=== PATIENT | female | born 1945 | race Caucasian/White ===

== ENCOUNTER 2017-04-23 19:33 | Emergency (ER) | payer OTHER ==
[~2017-04-23 19:33] MED LIST: ASPI81 PO; ATOR40TA49 PO; BACT800T5 PO; Losartan Potassium PO; METO25 PO; NITR-29 PO; TRAM50 PO
[2017-04-23 19:36] VITALS: BP 131/82; PULSE 80; RESP 15; TEMP 98.6; O2SAT 97
[2017-04-23] MEDS ORDERED: ASPI-110 PO (20:27)
[2017-04-23] MEDS ORDERED: LIPI40TA PO (20:27)
[2017-04-23] MEDS ORDERED: METO25TA3 PO (20:27)
[2017-04-23] MEDS ORDERED: LOSA50TA PO (20:27)
--- NOTE | 2017-04-23 20:47 | PD ---
HPI Chief Complaint: Numbness/Tingling Time Seen by Provider: 20:15 Travel History International Travel<30 days: No Contact w/Intl Traveler<30days: No Traveled to known affect area: No History of Present Illness HPI The patient was seen and examined in the presence of the nurse. This patient developed some spontaneous bruising of her left wrist. This was 3-4 days ago. No specific injury. She does take aspirin daily. Her boss at work noticed this and wanted her to get checked out. Not having pain. PFSH Past Medical History Asthma: No Blood Disorders: No Anxiety: No Depression: No Heart Rhythm Problems: Yes (PACEMAKER 2013) Cancer: No Cardiac Catheterization: Yes Cardiovascular Problems: Yes (PACEMAKER) High Cholesterol: Yes Chemotherapy: No Chest Pain: Yes Congestive Heart Failure: No COPD: No Diabetes: No Diminished Hearing: No Endocrine: No Genitourinary: Yes (UTI'S) Hypertension: Yes Immune Disorder: No Implanted Vascular Access Dvce: Yes Musculoskeletal: No Neurologic: No Psychiatric: No Reproductive: No Respiratory: No Immunizations Current: No Radiation Therapy: No Sleep Apnea: No Thyroid Disease: No Tetanus Vaccination: > 5 Years Menopausal: Yes : 3 Para: 2 Miscarriage: 1 Tubal Ligation: Yes Past Surgical History AICD: Yes Body Medical Devices: PACEMAKER Cardiac Surgery: Yes (PACEMAKER) Pacemaker: Yes Other Surgery: Yes Social History Alcohol Use: Yes (glass of wine sometimes) Tobacco Use: No Substance Use: No Allergies-Medications (Allergen,Severity, Reaction): Coded Allergies: No Known Allergies (Verified , 04/23/17) Reported Meds & Prescriptions Reported Meds & Active Scripts Active Reported Losartan (Losartan Potassium) 50 Mg Tab 50 Mg PO DAILY Metoprolol Tartrate 25 Mg Tab 25 Mg PO BID Lipitor (Atorvastatin Calcium) 40 Mg Tab 40 Mg PO HS Aspirin 81 (Aspirin) 81 Mg Tabdr 81 Mg PO DAILY Review of Systems General / Constitutional: No: Fever HENT: No: Headaches, Rhinorrhea Cardiovascular: No: Chest Pain or Discomfort Physical Exam Narrative CARDIOVASCULAR: Regular rate and rhythm without murmur. Extremities showed no edema or varicosities. NEUROLOGICAL: Awake and alert. Pupils are equal round and reactive. Motor and sensory grossly within normal limits. Five out of 5 muscle strength in all muscle groups. Normal speech. Left wrist: There is an area of ecchymosis but no tenderness or swelling Data Data Last Documented VS Vital Signs Date Time Temp Pulse Resp B/P Pulse Ox O2 Delivery O2 Flow Rate FiO2 04/23/17 19:36 98.6 80 15 131/82 97 Room Air MDM Medical Decision Making Medical Screen Exam Complete: Yes Emergency Medical Condition: Yes Medical Record Reviewed: Yes Differential Diagnosis Aspirin side effect, spontaneous ecchymosis, contusion Narrative Course I have reviewed the patient's electronic medical record. Patient has a area spontaneous ecchymosis on the wrist which may partially be related her aspirin therapy. Recommend primary care follow-up at this point Diagnosis Primary Impression: Spontaneous ecchymosis Additional Instructions: The patient was advised to follow up with their physician and return if they worsen. Med/Other Pt SpecificInfo: Other Disposition: 01 DISCHARGE HOME Condition: Stable Xavier Diamond MD Apr 23, 2017 20:47
== END 2017-04-23 20:54 | disposition home or self-care (01) ==
LOC: NEPC 19:33
DX: R23.3 Spontaneous ecchymoses (principal); E78.00 Pure hypercholesterolemia, unspecified; I10 Essential (primary) hypertension; Z79.82 Long term (current) use of aspirin; Z95.810 Presence of automatic (implantable) cardiac defibrillator
CPT/HCPCS: 99282

== ENCOUNTER 2017-09-26 15:08 | Emergency (ER) | payer OTHER ==
[~2017-09-26] VITALS: Ht 167.6 cm; Wt 61.8 kg
[~2017-09-26 15:08] MED LIST changes: +ASPI1TAB57 PO; -ASPI81 PO; -ATOR40TA49 PO; -BACT800T5 PO; +LIPI40TA PO; +LOSA50TA PO; -Losartan Potassium PO; -METO25 PO; +METO25TA3 PO; -NITR-29 PO; -TRAM50 PO
[2017-09-26 15:20] VITALS: BP 130/69; PULSE 69; RESP 16; TEMP 98.6; O2SAT 97
[2017-09-26] MEDS ORDERED: AMLO2.5T PO (15:39)
[2017-09-26] MEDS ORDERED: LOSA100T PO (15:39)
[2017-09-26] MEDS ORDERED: SPIR25TA PO (15:39)
[2017-09-26] MEDS ORDERED: NITR100C4 PO (15:39)
[2017-09-26 15:40] LABS: BLOOD, URINE SMALL (NEG); GLUCOSE,URINE NEG (NEG); KETONE, URINE NEG (NEG); NITRITE,URINE NEG (NEG)
[2017-09-26 15:41] LABS: METHOD OF COLLECTION CLEAN CATCH; URINE COLOR YELLOW (YELLW/STRAW)
--- NOTE | 2017-09-26 15:43 | PD ---
HPI . Cold Chief Complaint: Cold / Flu Symptoms Time Seen by Provider: 15:30 Travel History International Travel<30 days: No Contact w/Intl Traveler<30days: No Traveled to known affect area: No History of Present Illness HPI This patient presents with a chief complaint of a cold. Onset was a week and a half ago. She states that she presents to us about it today because she couldn' t see her doctor today because it is Thursday. She states that she has been busy working all of the other days up until today. She is not taking any over- the-counter cold medication. Her symptoms include cough with clear sputum and fatigue. No modifying factors. Symptoms are mild. In addition, the patient reports a history of chronic urinary tract infections. She is currently on Macrobid. She is scheduled to see a urologist in the near future. PFSH Past Medical History Hx Anticoagulant Therapy: Yes (asa 81mg) Asthma: No Blood Disorders: No Anxiety: No Depression: No Heart Rhythm Problems: Yes (PACEMAKER 2013) Cancer: No Cardiac Catheterization: Yes Cardiovascular Problems: Yes (htn on meds, pacemaker) High Cholesterol: Yes Chemotherapy: No Chest Pain: Yes Congestive Heart Failure: No COPD: No Diabetes: No Diminished Hearing: No Endocrine: No Genitourinary: Yes (UTI'S) Hypertension: Yes Immune Disorder: No Implanted Vascular Access Dvce: Yes Musculoskeletal: No Neurologic: No Psychiatric: No Reproductive: No Respiratory: No Immunizations Current: No Radiation Therapy: No Sleep Apnea: No Thyroid Disease: No Tetanus Vaccination: > 5 Years Influenza Vaccination: No ?: Not Menopausal: Yes : 3 Para: 2 Miscarriage: 1 Tubal Ligation: Yes Past Surgical History AICD: Yes Body Medical Devices: PACEMAKER Cardiac Surgery: Yes (PACEMAKER) Pacemaker: Yes Other Surgery: Yes Social History Alcohol Use: Yes (glass of wine sometimes) Tobacco Use: No Substance Use: No Allergies-Medications (Allergen,Severity, Reaction): Coded Allergies: ciprofloxacin (Verified Allergy, Severe, swelling, 09/26/17) Reported Meds & Prescriptions Reported Meds & Active Scripts Active Reported Amlodipine (Amlodipine Besylate) 2.5 Mg Tab 2.5 Mg PO DAILY Losartan (Losartan Potassium) 100 Mg Tab 100 Mg PO DAILY Spironolactone 25 Mg Tab 25 Mg PO DAILY Nitrofurantoin Monohydrate Macrocrystals (Nitrofurantoin Monoh/Nitrofur Macro) 100 Mg Cap 100 Mg PO DAILY Metoprolol Tartrate 25 Mg Tab 25 Mg PO BID Aspirin 81 (Aspirin) 81 Mg Tabdr 81 Mg PO DAILY Review of Systems General / Constitutional: No: Fever, Chills HENT: Positive: Congestion Cardiovascular: No: Chest Pain or Discomfort Respiratory: Positive: Cough, No: Shortness of Breath Physical Exam Narrative Vital Signs Date Time Temp Pulse Resp B/P (MAP) Pulse Ox O2 Delivery O2 Flow Rate FiO2 09/26/17 15:35 Room Air 09/26/17 15:20 98.6 69 16 130/69 (89) 97 GENERAL: Awake and alert and in no acute distress. SKIN: Warm and dry. HEAD: Normocephalic/atraumatic. EYES: Pupils are equal. Extraocular movements are intact. ENT: Oropharynx pink and moist with no erythema. The nose has no significant edema the turbinates. NECK: Normal range of motion. No cervical lymphadenopathy. CARDIOVASCULAR: Regular rate and rhythm. RESPIRATORY: Nonlabored respirations. Lungs are clear with full air movement throughout. MUSCULOSKELETAL: Atraumatic. NEUROLOGICAL: Nonfocal. PSYCHIATRIC: Appropriate mood and affect. Data Data Last Documented VS Vital Signs Date Time Temp Pulse Resp B/P (MAP) Pulse Ox O2 Delivery O2 Flow Rate FiO2 09/26/17 15:35 Room Air 09/26/17 15:20 98.6 69 16 130/69 (89) 97 Orders Orders Urinalysis - C+S If Indicated (09/26/17 15:19) Labs Laboratory Tests Test 09/26/17 15:30 Urine Collection Type CLEAN CATCH Urine Color YELLOW Urine Turbidity SLIGHT Urine pH 6.0 Urine Specific [place] 1.019 Urine Protein NEG mg/dL Urine Glucose (UA) NEG mg/dL Urine Ketones NEG mg/dL Urine Occult Blood SMALL Urine Nitrite NEG Urine Bilirubin NEG Urine Leukocyte Esterase TRACE Urine RBC 0-3 /hpf Urine WBC 0-2 /hpf Urine Squamous Epithelial Cells 6-8 /hpf Urine Amorphous Sediment FEW Microscopic Urinalysis Comment CULT NOT INDICATED Urine Collection Time 1530 MDM Medical Decision Making Medical Screen Exam Complete: Yes Emergency Medical Condition: Yes Differential Diagnosis Differential diagnosis includes but is not limited to influenza, upper respiratory infection, bronchitis, pneumonia Narrative Course This patient presents with cold symptoms. She has no significant physical exam findings. UA today is clear. Diagnosis Primary Impression: Upper respiratory infection Qualified Codes: J06.9 - Acute upper respiratory infection, unspecified Patient Instructions: General Instructions, Upper Respiratory Infection (DC) Additional Instructions: I recommend the use of a Neti Pot. You may use a nasal spray such as Afrin for up to 3 days as needed for nasal congestion. You may take an bojr-kdj-widugbl antihistamine such as Zyrtec, Elisabet or Claritin as needed for runny secretions. You may take pseudoephedrine as needed for congestion. You will need to sign for this at the pharmacy. You may take plain Mucinex, 1200 mg twice a day as needed for thick secretions. You may take a cough syrup such as Delsym as needed for cough. Motrin as needed for fever and body aches. Throat lozenges/sprays as needed for sore throat. Warm salt water gargles for sore throat. Hot tea with lemon and honey also helps soothe a sore throat. Disposition: 01 DISCHARGE HOME Condition: Stable Haylee Loja MD Sep 26, 2017 15:43
[2017-09-26 15:45] LABS: COMMENT (UR) CULT NOT INDICATED; CULTURE IF INDICATED CULT NOT INDICATED; RBC, URINE 0-3 /hpf (0-3); WBC, URINE 0-2 /hpf (0-5)
[2017-09-26 15:46] LABS: COMMENT2 (UR) MUCOUS PRESENT
== END 2017-09-26 16:09 | disposition home or self-care (01) ==
LOC: PHED 15:08 → PHEFT 16:09
DX: J06.9 Acute upper respiratory infection, unspecified (principal)
CPT/HCPCS: 81001; 99283

== ENCOUNTER 2017-12-11 14:11 | Emergency (ER) | payer OTHER, MEDICARE ==
[~2017-12-11] VITALS: Ht 170.2 cm; Wt 61.6 kg
[~2017-12-11 14:11] MED LIST changes: +AMLO2.5T PO; -LIPI40TA PO; +LOSA100T PO; -LOSA50TA PO; +NITR100C4 PO; +SPIR25TA PO
[2017-12-11 14:18] VITALS: BP 137/63; PULSE 68; RESP 16; TEMP 98.5; O2SAT 97
[2017-12-11] MEDS ORDERED: ZOFR4TAB PO (14:39)
--- NOTE | 2017-12-11 14:53 | PD ---
HPI Chief Complaint: Abdominal Pain Time Seen by Provider: 14:29 Travel History International Travel<30 days: No Contact w/Intl Traveler<30days: No Traveled to known affect area: No History of Present Illness HPI The patient was seen and examined in the presence of the nurse. This patient is worried about food poisoning. She had a roast be sent with yesterday afternoon and shortly thereafter became nauseous. She did not have any vomiting or diarrhea or abdominal pain. No presyncopal symptoms. This time her nausea has receded. Severity symptoms is mild. PFSH Past Medical History Hx Anticoagulant Therapy: Yes (asa 81mg) Asthma: No Blood Disorders: No Anxiety: No Depression: No Heart Rhythm Problems: Yes (PACEMAKER 2013) Cancer: No Cardiac Catheterization: Yes Cardiovascular Problems: Yes (htn on meds, pacemaker, [place]) High Cholesterol: Yes Chemotherapy: No Chest Pain: Yes Congestive Heart Failure: No COPD: No Diabetes: No Diminished Hearing: No Endocrine: No Genitourinary: Yes (UTI'S) Hypertension: Yes Immune Disorder: No Implanted Vascular Access Dvce: Yes Musculoskeletal: No Neurologic: No Psychiatric: No Reproductive: No Respiratory: No Immunizations Current: No Radiation Therapy: No Sleep Apnea: No Thyroid Disease: No ?: Not Menopausal: Yes : 3 Para: 2 Miscarriage: 1 Tubal Ligation: Yes Past Surgical History AICD: Yes Body Medical Devices: PACEMAKER Cardiac Surgery: Yes (PACEMAKER) Pacemaker: Yes Other Surgery: Yes Social History Alcohol Use: Yes (glass of wine sometimes) Tobacco Use: No Substance Use: No Allergies-Medications (Allergen,Severity, Reaction): Coded Allergies: ciprofloxacin (Verified Allergy, Severe, swelling, 12/11/17) Reported Meds & Prescriptions Reported Meds & Active Scripts Active Reported Amlodipine (Amlodipine Besylate) 2.5 Mg Tab 2.5 Mg PO DAILY Losartan (Losartan Potassium) 100 Mg Tab 100 Mg PO DAILY Spironolactone 25 Mg Tab 25 Mg PO DAILY Nitrofurantoin Monohydrate Macrocrystals (Nitrofurantoin Monoh/Nitrofur Macro) 100 Mg Cap 100 Mg PO DAILY Metoprolol Tartrate 25 Mg Tab 25 Mg PO BID Aspirin 81 (Aspirin) 81 Mg Tabdr 81 Mg PO DAILY Review of Systems HENT: No: Headaches Cardiovascular: No: Chest Pain or Discomfort Respiratory: No: Cough Gastrointestinal: Positive: Nausea Physical Exam Narrative GENERAL: Well-nourished, well-developed patient. SKIN: Focused skin assessment warm/dry. HEAD: Normocephalic. EYES: No scleral icterus. No injection or drainage. NECK: Supple, trachea midline. No JVD or lymphadenopathy. CARDIOVASCULAR: Regular rate and rhythm without murmurs, gallops, or rubs. RESPIRATORY: Breath sounds equal bilaterally. No accessory muscle use. GASTROINTESTINAL: Abdomen soft, non-tender, nondistended. MUSCULOSKELETAL: No cyanosis, or edema. BACK: Nontender without obvious deformity. No CVA tenderness. Data Data Last Documented VS Vital Signs Date Time Temp Pulse Resp B/P (MAP) Pulse Ox O2 Delivery O2 Flow Rate FiO2 12/11/17 14:18 98.5 68 16 137/63 (87) 97 MDM Medical Decision Making Medical Screen Exam Complete: Yes Emergency Medical Condition: Yes Medical Record Reviewed: Yes Differential Diagnosis Food poisoning, gastroenteritis, colitis Narrative Course I have reviewed the patient's electronic medical record. Patient looks clinically well with soft benign nontender abdomen and minimal symptoms at this time Zofran prescribed just in case The patient was advised to follow up with their physician and return if they worsen. Diagnosis Primary Impression: Nausea alone Additional Instructions: The patient was advised to follow up with their physician and return if they worsen. Med/Other Pt SpecificInfo: Prescription(s) given Scripts Ondansetron (Zofran) 4 Mg Tab 4 MG PO Q6HR Y for NAUSEA OR VOMITING, #12 TAB 0 Refills Prov: Xavier Diamond MD 12/11/17 Disposition: 01 DISCHARGE HOME Condition: Stable Xavier Diamond MD Dec 11, 2017 14:53
== END 2017-12-11 15:40 | disposition home or self-care (01) ==
LOC: PHED 14:11
DX: R11.0 Nausea (principal); E78.00 Pure hypercholesterolemia, unspecified; I10 Essential (primary) hypertension; Z95.0 Presence of cardiac pacemaker; Z79.82 Long term (current) use of aspirin
CPT/HCPCS: 99283

== ENCOUNTER 2018-04-09 10:13 | Emergency (ER) | payer MEDICARE, OTHER ==
[~2018-04-09] VITALS: Ht 167.6 cm; Wt 60.0 kg
[~2018-04-09 10:13] MED LIST changes: +ZOFR4TAB PO
[2018-04-09 10:20] VITALS: BP 105/65; PULSE 69; RESP 16; TEMP 98; O2SAT 100
[2018-04-09] MEDS ORDERED: CIPR250T2 PO (10:44)
[2018-04-09] MEDS ORDERED: SODIUM CHLOR 0.9% 1000 ML INJ 1,000 ML IV ONE (11:30)
[2018-04-09] MEDS ORDERED: DIATRIZOATE MEGLUM/DIATRIZOATE SOD 9 ML CUP ONE (11:32)
[2018-04-09 11:36] VITALS: O2SAT 99
[2018-04-09 11:58] LABS: AUTOMATED NEUTROPHIL # 3.3 TH/MM3 (1.8-7.7); BASOPHIL # 0.1 TH/MM3 (0-0.2); BASOPHIL % 1.1 % (0.0-2.0); EOSINOPHIL # 0.2 TH/MM3 (0-0.4); EOSINOPHIL % 3.4 % (0.0-4.0); HEMOGLOBIN 11.1 GM/DL (11.6-15.3); MEAN CELL VOLUME 91.3 FL (80.0-100.0); MEAN CORPUSCULAR HEMOGLOBIN 31.7 PG (27.0-34.0); MEAN CORPUSCULAR HGB CONC 34.7 % (32.0-36.0); MEAN PLATELET VOLUME 7.1 FL (7.0-11.0); MONO % 8.7 % (0.0-8.0); MONOCYTE # 0.5 TH/MM3 (0-0.9); NEUT % 53.8 % (16.0-70.0); PLATELET COUNT 222 TH/MM3 (150-450); RED BLOOD COUNT 3.51 MIL/MM3 (4.00-5.30); RED CELL DISTRIBUTION WIDTH 12.6 % (11.6-17.2); WHITE BLOOD COUNT 6.1 TH/MM3 (4.0-11.0)
[2018-04-09 12:03] LABS: BILIRUBIN, URINE NEG (NEG); BLOOD, URINE NEG (NEG); GLUCOSE,URINE NEG (NEG); KETONE, URINE NEG (NEG); MUCUS URINE FEW /lpf (OCC); NITRITE,URINE NEG (NEG); PH, URINE 6.5 (5.0-8.5); SQUAMOUS EPITHELIAL CELL URINE 4 /hpf (0-5); TRANSITIONAL EPI CELLS, URINE <1 /hpf; URINE COLOR YELLOW (YELLW/STRAW); URINE LEUKOCYTE ESTERASE SMALL (NEG)
[2018-04-09 12:40] LABS: BICARBONATE 26.8 MEQ/L (21.0-32.0); CALCIUM 8.6 MG/DL (8.5-10.1); CREATININE 0.82 MG/DL (0.50-1.00)
[2018-04-09] MEDS ORDERED: IOHEXOL 350 MG/ML 10 ML VIAL (for RAD DIAG) IVCONTRAST ONE (14:00)
--- NOTE | 2018-04-09 14:39 | RADRPT ---
EXAM DATE: 04/09/2018 2:05 PM EDT AGE/SEX: 72 years / Female INDICATIONS: Abdominal pain and distention. Constipation. CLINICAL DATA: This is the patient's initial encounter. Patient reports that signs and symptoms have been present for 1 week and indicates a pain score of 4/10. MEDICAL/SURGICAL HISTORY: Cardiovascular disease. Hypertension. Tubal ligation. Pacemaker. ORAL CONTRAST: Prescribed oral contrast ingested. RADIATION DOSE: 6.64 CTDI (mGy) COMPARISON: [facility] – [place], 05/08/2016. . TECHNIQUE: Multiple contiguous axial images were obtained through the abdomen and pelvis following b olus infusion of 97 ml Omnipaque 350 (iohexol) nonionic water-soluble contrast as a single exam dos e. Prescribed oral contrast ingested. Using automated exposure control and adjustment of the mA and/ or kV according to patient size, the radiation dose was kept as low as reasonably achievable to obtai n optimal diagnostic quality images. FINDINGS: There is respiratory motion artifact. Lower chest: No acute abnormality is identified. Hepatobiliary: No focal liver lesion is identified. Hepatic vasculature demonstrates no abnormality. No calcified gallstones are present. Kidneys: No hydronephrosis, stone, or mass. There is distention of the collecting systems bilaterally with prominent extrarenal pelvis. Level of caliber change is in the UPJ region. There is no hydroure ter. Adrenal Glands: Within normal limits. Spleen: Within normal limits. Pancreas: Within normal limits. Vascular: The aorta is nonaneurysmal. There is mild atherosclerotic disease. Abdominal aorta is mildl y tortuous. Cardiac pacing wire is present in the right heart. Bowel/Mesentery: The stomach and small bowel demonstrate no abnormality. No acute colon abnormality i s seen. There is no free intraperitoneal air or fluid. There is sigmoid diverticulosis. Abdominal Wall: No hernia is visualized. Retroperitoneum: No lymphadenopathy. Bladder: No wall thickening or mass. Reproductive: Within normal limits. Inguinal: No lymphadenopathy or hernia. There are clips in the right inguinal region. Musculoskeletal: No acute osseous abnormality is identified. There are degenerative changes of the ria mbar spine. Bilateral pars defects are present at L5 with grade 1 anterolisthesis. CONCLUSION: 1. No acute finding is identified to explain the clinical symptoms. 2. Mild distention of the collecting systems bilaterally with level of caliber change at the uretero pelvic junction. No obstructing process is seen surrounding this could represent chronic UPJ narrowin g. 3. Nonacute findings include moderate atherosclerotic disease and bilateral pars defects at L5. Electronically signed by: Juan Hardy MD 04/09/2018 2:24 PM EDT
[2018-04-09] MEDS ORDERED: MAGNESIUM CITRATE SOLN 300 ML BTL PO ONE (15:45)
--- NOTE | 2018-04-09 17:41 | PD ---
HPI Chief Complaint: GI Complaint Time Seen by Provider: 11:04 Travel History International Travel<30 days: No Contact w/Intl Traveler<30days: No Traveled to known affect area: No History of Present Illness HPI This is a 72-year-old female presents today with complaints of constipation. Patient states that she was seen by her primary care physician and had an outpatient x-ray done. She states that she is still complaining of constipation. She reports that her primary care physician recommended she come to the emergency department to have a study. Patient stated she thought it was an ultrasound however was not sure. She denies any fevers, chills. She denies any vomiting. She does report that when she tries to have a bowel movement the best that she can do is have a small little hard lennox come out of her rectum. She is tried rectal suppositories and reports the same outcome. Patient does report that she had a recent UTI. She is currently taking Cipro for this. She does report that she does not drink as much liquid as she should. PFSH Past Medical History Hx Anticoagulant Therapy: Yes (asa 81mg) Asthma: No Blood Disorders: No Anxiety: No Depression: No Heart Rhythm Problems: Yes (PACEMAKER 2013) Cancer: No Cardiac Catheterization: Yes Cardiovascular Problems: Yes High Cholesterol: Yes Chemotherapy: No Chest Pain: Yes Congestive Heart Failure: No COPD: No Diabetes: No Diminished Hearing: No Endocrine: No Genitourinary: Yes (UTI'S) Hypertension: Yes Immune Disorder: No Implanted Vascular Access Dvce: Yes Musculoskeletal: No Neurologic: No Psychiatric: No Reproductive: No Respiratory: No Immunizations Current: No Radiation Therapy: No Sleep Apnea: No Thyroid Disease: No Tetanus Vaccination: Unknown Influenza Vaccination: No ?: Not Menopausal: Yes : 3 Para: 2 Miscarriage: 1 Tubal Ligation: Yes Past Surgical History AICD: Yes Body Medical Devices: PACEMAKER Cardiac Surgery: Yes (PACEMAKER) Pacemaker: Yes (biotronic) Other Surgery: Yes Social History Alcohol Use: Yes (glass of wine sometimes) Tobacco Use: No Substance Use: No Allergies-Medications (Allergen,Severity, Reaction): Coded Allergies: No Known Allergies (Unverified , 04/09/18) Reported Meds & Prescriptions Reported Meds & Active Scripts Active Reported Ciprofloxacin (Ciprofloxacin HCl) 250 Mg Tab 250 Mg PO BID Amlodipine (Amlodipine Besylate) 2.5 Mg Tab 2.5 Mg PO DAILY Losartan (Losartan Potassium) 100 Mg Tab 100 Mg PO DAILY Spironolactone 25 Mg Tab 25 Mg PO DAILY Metoprolol Tartrate 25 Mg Tab 25 Mg PO BID Aspirin 81 (Aspirin) 81 Mg Tabdr 81 Mg PO DAILY Review of Systems Except as stated in HPI: all other systems reviewed are Neg General / Constitutional: No: Fever, Chills HENT: No: Headaches, Lightheadedness, Neck Pain Cardiovascular: No: Chest Pain or Discomfort, Palpitations, Irregular Rhythm Respiratory: No: Cough, Shortness of Breath Gastrointestinal: Positive: Abdominal Pain (Intermittent crampy), Constipation , No: Nausea, Vomiting, Loss of Appetite Genitourinary: Positive: Incontinence (Patient has chronic incontinence times several years. She does wear a pad.), No: Frequency, Dysuria Musculoskeletal: No: Weakness, Pain Neurologic: No: Weakness, Dizziness, Headache Physical Exam Narrative GENERAL: Well-developed well-nourished female in no acute respiratory distress. SKIN: Focused skin assessment warm/dry. HEAD: Atraumatic. Normocephalic. EYES: Pupils equal and round. No scleral icterus. No injection or drainage. ENT: No nasal bleeding or discharge. Mucous membranes pink and moist. NECK: Trachea midline. No JVD. Supple. CARDIOVASCULAR: Regular rate and rhythm. No murmur appreciated. RESPIRATORY: No accessory muscle use. Clear to auscultation. Breath sounds equal bilaterally. GASTROINTESTINAL: Abdomen soft, non-tender, nondistended. No pulsatile masses. MUSCULOSKELETAL: No obvious deformities. No clubbing. No cyanosis. No edema. NEUROLOGICAL: Awake and alert. No obvious cranial nerve deficits. Motor grossly within normal limits. Normal speech. Data Data Last Documented VS Vital Signs Date Time Temp Pulse Resp B/P (MAP) Pulse Ox O2 Delivery O2 Flow Rate FiO2 04/09/18 11:36 99 Room Air 04/09/18 10:20 98.0 69 16 105/65 (78) Orders Orders Complete Blood Count With Diff (04/09/18 11:16) Basic Metabolic Panel (Bmp) (04/09/18 11:16) Urinalysis - C+S If Indicated (04/09/18 11:16) Ct Abd/Pel W Iv Contrast(Rout) (04/09/18 11:16) Iv Access Insert/Monitor (04/09/18 11:16) Ecg Monitoring (04/09/18 11:16) Oximetry (04/09/18 11:16) Sodium Chlor 0.9% 1000 Ml Inj (Ns 1000 M (04/09/18 11:30) Oral Contrast - Adult (04/09/18 11:21) Diatrizoate Liq ( Gastroview Liq) (04/09/18 11:32) Iohexol 350 Inj (Omnipaque 350 Inj) (04/09/18 14:00) Magnesium Citrate Liq (Citroma Liq) (04/09/18 15:45) Labs Laboratory Tests Test 04/09/18 11:40 White Blood Count 6.1 TH/MM3 Red Blood Count 3.51 MIL/MM3 Hemoglobin 11.1 GM/DL Hematocrit 32.0 % Mean Corpuscular Volume 91.3 FL Mean Corpuscular Hemoglobin 31.7 PG Mean Corpuscular Hemoglobin Concent 34.7 % Red Cell Distribution Width 12.6 % Platelet Count 222 TH/MM3 Mean Platelet Volume 7.1 FL Neutrophils (%) (Auto) 53.8 % Lymphocytes (%) (Auto) 33.0 % Monocytes (%) (Auto) 8.7 % Eosinophils (%) (Auto) 3.4 % Basophils (%) (Auto) 1.1 % Neutrophils # (Auto) 3.3 TH/MM3 Lymphocytes # (Auto) 2.0 TH/MM3 Monocytes # (Auto) 0.5 TH/MM3 Eosinophils # (Auto) 0.2 TH/MM3 Basophils # (Auto) 0.1 TH/MM3 CBC Comment DIFF FINAL Differential Comment Urine Color YELLOW Urine Turbidity CLEAR Urine pH 6.5 Urine Specific [place] 1.013 Urine Protein NEG mg/dL Urine Glucose (UA) NEG mg/dL Urine Ketones NEG mg/dL Urine Occult Blood NEG Urine Nitrite NEG Urine Bilirubin NEG Urine Urobilinogen LESS THAN 2.0 MG/DL Urine Leukocyte Esterase SMALL Urine RBC LESS THAN 1 /hpf Urine WBC 1 /hpf Urine Squamous Epithelial Cells 4 /hpf Urine Transitional Epithelial Cells <1 /hpf Urine Mucus FEW /lpf Microscopic Urinalysis Comment CULT NOT INDICATED Blood Urea Nitrogen 22 MG/DL Creatinine 0.82 MG/DL Random Glucose 84 MG/DL Calcium Level 8.6 MG/DL Sodium Level 142 MEQ/L Potassium Level 3.9 MEQ/L Chloride Level 109 MEQ/L Carbon Dioxide Level 26.8 MEQ/L Anion Gap 6 MEQ/L Estimat Glomerular Filtration Rate 69 ML/MIN MDM Medical Decision Making Medical Screen Exam Complete: Yes Emergency Medical Condition: Yes Differential Diagnosis Constipation versus bowel obstruction versus diverticulitis Narrative Course 72-year-old female presents with constipation times several days. The patient states she was seen by her primary care doctor who ordered an outpatient x-ray. She reports that she was told to come here if she develops continued constipation. The patient is still complaining of constipation and reports that she is able to have small bowel movements of pebble-like stool. The patient is afebrile. She has a benign abdomen. Laboratory tests show prerenal azotemia. Patient's been given 1 L of IV fluid. Is currently being treated for a UTI. Patient does admit that she does not drink enough fluids per day. She has been given 300 cc of magnesium citrate. She will be discharged home and told to stay near the toilet when she arrives home because she would likely have a large bowel movement. She can purchase [id number] oral stool softeners and take them daily as long as she is drinking plenty of fluids. She is also been instructed to continue her antibiotics for her UTI. Urinary tract infection appears to have resolved or is positively treated. Diagnosis Primary Impression: Constipation Additional Impressions: Recent urinary tract infection Dehydration Additional Instructions: Continue antibiotics for your urinary tract infection. It is important you drink at least 8 8 ounce glasses of water per day. Follow-up with your primary care physician. [id number] oral stool softeners as needed as long as you are drinking plenty of liquids. Disposition: 01 DISCHARGE HOME Condition: Stable Ender Sampson MD Apr 09, 2018 17:40
== END 2018-04-09 18:11 | disposition home or self-care (01) ==
LOC: NEPC 10:13
DX: K59.00 Constipation, unspecified (principal); N39.0 Urinary tract infection, site not specified; E86.0 Dehydration; I10 Essential (primary) hypertension
CPT/HCPCS: 74177; 80048; 81001; 85025; 96360; 99284; J7030; Q9963; Q9967

== ENCOUNTER 2018-04-20 14:37 | Emergency (ER) | payer OTHER ==
[~2018-04-20] VITALS: Ht 167.6 cm; Wt 59.5 kg
[~2018-04-20 14:37] MED LIST changes: +CIPR250T2 PO; -NITR100C4 PO; -ZOFR4TAB PO
[2018-04-20 14:43] VITALS: BP 134/78; PULSE 64; RESP 20; TEMP 97.8; O2SAT 99
[2018-04-20] MEDS ORDERED: MORPHINE SULFATE 4 MG/ML INJ IV PUSH ONE (15:15)
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
[2018-04-20 16:30] VITALS: BP_SYST 124; PULSE 76; RESP 17; TEMP 97.8; O2SAT 98
[2018-04-20 17:17] LABS: AUTOMATED NEUTROPHIL # 2.9 TH/MM3 (1.8-7.7); BASOPHIL % 0.9 % (0.0-2.0); EOSINOPHIL # 0.1 TH/MM3 (0-0.4); EOSINOPHIL % 2.4 % (0.0-4.0); HEMATOCRIT 28.8 % (35.0-46.0); HEMOGLOBIN 9.9 GM/DL (11.6-15.3); LYMPHOCYTE # 2.1 TH/MM3 (1.0-4.8); MEAN CELL VOLUME 92.2 FL (80.0-100.0); MEAN CORPUSCULAR HEMOGLOBIN 31.7 PG (27.0-34.0); MEAN CORPUSCULAR HGB CONC 34.3 % (32.0-36.0); MEAN PLATELET VOLUME 7.9 FL (7.0-11.0); MONO % 7.7 % (0.0-8.0); MONOCYTE # 0.4 TH/MM3 (0-0.9); PLATELET COUNT 198 TH/MM3 (150-450); RED BLOOD COUNT 3.13 MIL/MM3 (4.00-5.30); RED CELL DISTRIBUTION WIDTH 12.5 % (11.6-17.2); WHITE BLOOD COUNT 5.6 TH/MM3 (4.0-11.0)
[2018-04-20] MEDS ORDERED: PROPOFOL 200 MG/20 ML AMP IV ONE (17:30)
[2018-04-20 17:40] VITALS: BP 124/87; PULSE 64; RESP 18; TEMP 97.9; O2SAT 100
[2018-04-20 17:48] LABS: BICARBONATE 24.5 MEQ/L (21.0-32.0); CALCIUM 8.6 MG/DL (8.5-10.1); CREATININE 0.72 MG/DL (0.50-1.00)
[2018-04-20 18:00] VITALS: O2SAT 100
--- NOTE | 2018-04-20 18:25 | RADRPT ---
EXAM DATE: 04/20/2018 6:20 PM EDT AGE/SEX: 72 years / Female INDICATIONS: Post reduction, right wrist. CLINICAL DATA: This is the patient's initial encounter. Patient reports that signs and symptoms have been present for 1 day and indicates a pain score of 10/10. MEDICAL/SURGICAL HISTORY: None. None. COMPARISON: [facility] – [place], WRIST RIGHT COMPLETE ([id number]), 04/20/2018. . FINDINGS: Interval reduction and casting of distal right radial fracture. There is near-anatomic alignment of t he fracture fragments on the AP view with slight dorsal angulation on the lateral view. There is near -anatomic alignment of the radial ulnar joint. No additional new fractures are identified with bony d etail obscured by overlying casting material. CONCLUSION: 1. Interval reduction and casting of distal right radial fracture, as above. Electronically signed by: Edouard Almanzar MD 04/20/2018 6:24 PM EDT
[2018-04-20] MEDS ORDERED: NORC5TAB PO (18:29)
[2018-04-20 18:40] VITALS: BP 124/81; TEMP 97.8
== END 2018-04-20 18:45 | disposition home or self-care (01) ==
LOC: NEPE 14:37
DX: S52.501A Unspecified fracture of the lower end of right radius, initial encounter for closed fracture (principal); D64.9 Anemia, unspecified; E78.00 Pure hypercholesterolemia, unspecified; I10 Essential (primary) hypertension; Z79.82 Long term (current) use of aspirin; Z79.899 Other long term (current) drug therapy; V43.52XA Car driver injured in collision with other type car in traffic accident, initial encounter
CPT/HCPCS: 25605; 73090; 73100; 73110; 80048; 85025; 96374; 99285; J2270

== ENCOUNTER 2018-04-24 22:35 | Emergency (ER) | payer OTHER ==
[~2018-04-24] VITALS: Ht 167.6 cm; Wt 60.0 kg
[~2018-04-24 22:35] MED LIST changes: -CIPR250T2 PO; +NORC5TAB PO
[2018-04-24 22:47] VITALS: BP 122/68; PULSE 72; RESP 18; TEMP 97.8; O2SAT 99
--- NOTE | 2018-04-24 23:17 | PD ---
HPI . Swelling and discoloration of her fingers Chief Complaint: Edema Time Seen by Provider: 22:52 Travel History International Travel<30 days: No Contact w/Intl Traveler<30days: No Traveled to known affect area: No History of Present Illness HPI This patient is status post a right wrist fracture 2 days ago. She comes in to us tonight because her fingers are swollen and bruised. She is also concerned because she was not given a specific orthopedic referral. She further expresses concern about her work status. PFSH Past Medical History Hx Anticoagulant Therapy: Yes (ASA) Asthma: No Blood Disorders: No Anxiety: No Depression: No Heart Rhythm Problems: Yes (PACEMAKER 2013) Cancer: No Cardiac Catheterization: Yes Cardiovascular Problems: Yes High Cholesterol: Yes Chemotherapy: No Chest Pain: Yes Congestive Heart Failure: No COPD: No Diabetes: No Diminished Hearing: No Endocrine: No Genitourinary: Yes (UTI'S) Hypertension: Yes Immune Disorder: No Implanted Vascular Access Dvce: Yes Musculoskeletal: No Neurologic: No Psychiatric: No Reproductive: No Respiratory: No Immunizations Current: No Radiation Therapy: No Sleep Apnea: No Thyroid Disease: No Tetanus Vaccination: > 5 Years Influenza Vaccination: No Menopausal: Yes : 3 Para: 2 Miscarriage: 1 Tubal Ligation: Yes Past Surgical History AICD: Yes Body Medical Devices: PACEMAKER Cardiac Surgery: Yes (PACEMAKER) Pacemaker: Yes (biotronic) Other Surgery: Yes Social History Alcohol Use: Yes (glass of wine sometimes) Tobacco Use: No Substance Use: No Allergies-Medications (Allergen,Severity, Reaction): Coded Allergies: No Known Allergies (Unverified , 04/20/18) Reported Meds & Prescriptions Reported Meds & Active Scripts Active [place] (Hydrocodone-Acetaminophen) 5 Mg-325 Mg Tab 1 Tab PO Q6H PRN Reported Amlodipine (Amlodipine Besylate) 2.5 Mg Tab 2.5 Mg PO DAILY Losartan (Losartan Potassium) 100 Mg Tab 100 Mg PO DAILY Spironolactone 25 Mg Tab 25 Mg PO DAILY Metoprolol Tartrate 25 Mg Tab 25 Mg PO BID Aspirin 81 (Aspirin) 81 Mg Tabdr 81 Mg PO DAILY Review of Systems Except as stated in HPI: all other systems reviewed are Neg Physical Exam Narrative GENERAL: Awake and alert and in no acute distress. SKIN: Warm and dry. Normal color and turgor. She has some bruising of the fingers of the right hand. Tactile temperature of the fingertips is normal. HEAD: Normocephalic/atraumatic. EYES: Pupils are equal. Extraocular movements are intact. NECK: Normal range of motion. Supple. CARDIOVASCULAR: Regular rate and rhythm. Normal capillary refill of the fingers of the right hand. RESPIRATORY: Nonlabored respirations. Normal sats. MUSCULOSKELETAL: Atraumatic. Normal muscle tone. The right arm is splinted. She has normal movement of her fingers. NEUROLOGICAL: A and O 3. Nonfocal. PSYCHIATRIC: Appropriate mood and affect. Data Data Last Documented VS Vital Signs Date Time Temp Pulse Resp B/P (MAP) Pulse Ox O2 Delivery O2 Flow Rate FiO2 04/24/18 23:07 04/24/18 22:47 97.8 72 18 99 Orders Orders Ed Discharge Order (04/24/18 23:06) [facility] Medical Decision Making Medical Screen Exam Complete: Yes Emergency Medical Condition: Yes Differential Diagnosis My differential diagnosis of a swollen extremity includes but is not limited to superficial phlebitis, DVT, cellulitis, arthritis, fluid and electrolyte problem Narrative Course This patient presents concerned about swelling and discoloration of the fingers of her right hand 2 days status post a right wrist fracture. The bruising and swelling appears normal. She has good circulation. She has normal movement. She has been reassured that the bruising and swelling is normal following her fracture. She has been provided a work note. She has been given the name and telephone number of an orthopedist. Diagnosis Primary Impression: Right wrist fracture Qualified Codes: S62.101D - Fracture of unspecified carpal bone, right wrist, subsequent encounter for fracture with routine healing Referrals: Orthopaedic Surgeon call for appointment Patient Instructions: General Instructions, Wrist Fracture in Adults (ED) Departure Forms: Work Release, Enter return to work date: Apr 28, 2018 Special Instructions: To return to work when cleared per Orthopedic Tests/Procedures Additional Instructions: /Orthopedic Surgery [facility] [place] [address] Disposition: 01 DISCHARGE HOME Condition: Stable Haylee Loja MD Apr 24, 2018 23:17
== END 2018-04-24 23:20 | disposition home or self-care (01) ==
LOC: PHED 22:35
DX: S62.101A Fracture of unspecified carpal bone, right wrist, initial encounter for closed fracture (principal); I10 Essential (primary) hypertension; X58.XXXA Exposure to other specified factors, initial encounter; Z79.01 Long term (current) use of anticoagulants
CPT/HCPCS: 99281

== ENCOUNTER 2018-06-08 12:33 | Observation (INO) ==
[2018-06-08] MEDS ORDERED: Sodium Chlor 0.9% Inj 500 ML IV.SIG ONE (13:44)
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
[2018-06-08 14:15] LABS: Baso % (Auto) 0.9 % (0.0-2.0); Eos % (Auto) 0.6 % (0.0-4.0); Hematocrit 35.9 % (35.0-46.0); Hemoglobin 12.1 gm/dL (11.6-15.3); Lymph # (Auto) 1.4 th/mm3 (1.0-4.8); Lymph % (Auto) 29.7 % (9.0-44.0); Mean Corpuscular HGB Conc 33.7 % (32.0-36.0); Mean Corpuscular Hemoglobin 31.6 pg (27.0-34.0); Mean Corpuscular Volume 93.7 fL (80.0-100.0); Mean Platelet Volume 7.4 fL (7.0-11.0); Mono # (Auto) 0.4 th/mm3 (0.0-0.9); Mono % (Auto) 8.1 % (0.0-8.0); Neut # (Auto) 2.8 th/mm3 (1.8-7.7); Neut % (Auto) 60.7 % (16.0-70.0); Platelet Count 276 th/mm3 (150-450); Red Blood Count 3.83 mil/mm3 (4.00-5.30); Red Cell Distribution Width 12.6 % (11.6-17.2); White Blood Count 4.6 th/mm3 (4.0-11.0)
[2018-06-08 14:34] LABS: Alanine Aminotransferase 22 U/L (10-53); Albumin 3.9 g/dL (3.4-5.0); Anion Gap 6 meq/L (5-15); Aspartate Aminotransferase 24 U/L (15-37); Blood Urea Nitrogen 19 mg/dL (7-18); Calcium 9.2 mg/dL (8.5-10.1); Carbon Dioxide 25.7 meq/L (21.0-32.0); Chloride 108 meq/L (98-107); Glomerular Filtration Rate 58 mL/min (>89); Glucose,Random 100 mg/dL (74-106); Potassium 4.2 meq/L (3.5-5.1); Sodium 140 meq/L (136-145)
[2018-06-08 14:38] LABS: Alkaline Phosphatase 73 U/L (45-117); Total Protein 7.5 g/dL (6.4-8.2); Troponin I 0.09 ng/mL (0.02-0.05)
--- NOTE | 2018-06-08 14:48 | XR ---
EXAM DATE: 06/08/2018 2:34 PM EDT AGE/SEX: 72 years / Female INDICATIONS: Palpitations, abdominal pain, feels hot inside CLINICAL DATA: This is the patient's initial encounter. Patient reports that signs and symptoms have been present for 2 days and indicates a pain score of Nonresponsive. MEDICAL/SURGICAL HISTORY: Cardiovascular disease. Hypertension. Pacemaker. [place] [facility] [place]. . FINDINGS: Pacer lead overlies right ventricle. Heart size enlarged. Tortuous aorta. No consolidation or signifi cant effusion. No pneumothorax. CONCLUSION: No acute findings. Tortuous aorta. Cardiomegaly. Pacer lead in right ventricle. Electronically signed by: Phillip Bill MD 06/08/2018 2:47 PM EDT
[2018-06-08 16:14] LABS: Bilirubin,Urine Negative (Negative); Clarity,Urine Hazy (Clear); Color,Urine Yellow (Yellw/Straw); Glucose,Urine (UA) Negative (Negative); Hyaline Casts,Urine 4 /lpf (0-3); Leukocyte Esterase,Urine Trace (Negative); Mucus,Urine Few /lpf (Occasional); Nitrite,Urine Negative (Negative); Specific Gravity,Urine 1.012 (1.002-1.035); Squamous Epithelial Cell,Urine 3 /hpf (0-5)
[2018-06-08] MEDS ORDERED: Acetaminophen 325 MG Tablet PO PRN (16:21)
[2018-06-08] MEDS ORDERED: Temazepam 15 MG Capsule PO PRN (16:21)
[2018-06-08] MEDS ORDERED: Bisacodyl 10 MG Supp RECTAL PRN (16:21)
--- NOTE | 2018-06-08 16:47 | P.HPIM ---
History of Present Illness Service: [facility] Primary Care Physician: No Primary Care Physician Chief Complaint: WEAKNESS AND DIZZINESS History of Present Illness: Patient is a 72-year-old female. Presented emergency department because she has burning, feeling like she is getting flushed all over, feels lightheaded and is this comes and goes and happens intermittently. Patient states she gets a flushed feeling that starts from the bottom of her feet all the way up through her head. She denies any vomiting, denies any diarrhea denies any fevers or any other symptoms she has been constipated. But has not taken much for that. She has also had decreased appetite according to her daughter. She states that she was seen for the similar thing at [facility]. And was released. Patient therefore decided that she was not happy over there and decided to come here for further evaluation. She states that it she thinks she may have a urinary tract infection because she feels flushed, states that she also thinks that the symptoms could be secondary to a hiatal hernia per looking up on the Internet. Patient did not answer questions appropriately for the emergency room physician and I had to spend lots of time trying to get extra history Patient was found not to have a urinary tract infection once the urinalysis finally came back but did have a slightly positive troponin at 0.09 we will ask her smart grid engineer to see her. Her past medical history is significant for history of a hysterectomy, varicose veins of her legs, anxiety, permanent pacemaker, and hypertension. Patient had been a smoker and drinker in the past Family history is positive for hypertensive heart disease Review of Systems All other systems reviewed negative except as stated in HPI Constitutional: Reports anorexia, Reports weight loss Gastrointestinal: Reports constipation PMFSH - History History Provided By: Patient - Medical History Medical History: Medical History (Last Updated 06/08/18 @ 15:16 by Lacey Ibrahim) H/O: hysterectomy Varicose vein of leg Anxiety Artificial cardiac pacemaker HTN (hypertension) - Surgical History Surgical History: Surgical History (Last Updated 06/08/18 @ 16:41 by Tommy Wing DO) H/O varicose vein stripping History of permanent cardiac pacemaker placement - Family History Family History: Family History (Last Updated 06/08/18 @ 16:42 by Tommy Wing DO) Other Family history of hypertension - Tobacco History Second Hand Smoke Exposure: No Tobacco Use In Past 30 Days: No Smoking Status: Former smoker Tobacco Type: Cigarettes - Alcohol History How Often Do You Have a Drink Containing Alcohol: 2 to 4 times a month - Substance Use History Substance History: No History of Abuse - Travel History History of Recent Travel: No Recent Travel in the [place] Within the Last 8 Weeks: No Recent Travel Out of the Country Within the Last 8 Weeks: No - Immunization History Tetanus Immunization: >5 Years Hx Influenza Vaccine This Season: No Medications and Allergies Active Medications: Active Medications Acetaminophen (Tylenol) 650 mg PO Q4H PRN PRN Reason: Temp > 100.4 Al Hydroxide/Mg Hydroxide (Milk Of Magnesia Liq) 30 ml PO Q12H PRN PRN Reason: Mild Constipation Bisacodyl (Dulcolax Supp) 10 mg RECTAL DAILY PRN PRN Reason: SEVERE CONSITIPATION Heparin Sodium (Porcine) (Heparin Inj) 5,000 units SQ Q8H ADELE Sodium Chloride (Ns Inj) 1,000 mls @ 100 mls/hr IV.CONT .Q10H ADE[place] Lactulose (Lactulose Liq) 30 ml PO DAILY PRN PRN Reason: SEVERE CONSITIPATION Ondansetron HCl (Zofran Inj) 4 mg IV.PUSH Q6H PRN PRN Reason: NAUSEA OR VOMITING Senna/Docusate Sodium (Laurie-Colace) 2 tab PO BID ADELE Sennosides (Senokot) 17.2 mg PO Q12H ADELE Sodium Chloride (Ns Flush) 2 ml IV.FLUSH PRN PRN PRN Reason: FLUSH AFTER USING IV ACCESS Last Admin: 06/08/18 13:58 Dose: 2 ml Temazepam (Restoril) 15 mg PO HS PRN PRN Reason: INSOMNIA Allergies Allergy/AdvReac Type Severity Reaction Status Date / Time No Known Allergies Allergy Unverified 04/20/18 14:50 Exam Vital signs: Vital Signs 06/08/18 12:35 06/08/18 12:59 Temperature 98.9 F Pulse Rate 84 75 Respiratory Rate 16 Blood Pressure 80/57 L Pulse Oximetry 100 Intake & Output 06/07/18 06/08/18 06/08/18 18:59 06:59 18:59 Intake Total 500 / 500 Balance 500 / 500 Weight 57.153 kg Intake: IV 500 / 500 NS Inj 500 ML @ Wide Open IV. 500 / 500 SIG BOLUS ONE Rx#:[id number] Narrative: GENERAL: Awake alert and oriented 3 talkative and cooperative somewhat anxious but in no acute distress SKIN: Warm and dry. HEAD: Atraumatic. Normocephalic. EYES: Pupils equal and round. No scleral icterus. No injection or drainage. ENT: No nasal bleeding or discharge. Mucous membranes pink and moist. NECK: Trachea midline. No JVD. CARDIOVASCULAR: Regular rate and rhythm. S1-S2 no S3 or S4 pacemaker in place RESPIRATORY: No accessory muscle use. Clear to auscultation. Breath sounds equal bilaterally. GASTROINTESTINAL: Abdomen soft, non-tender, nondistended. Hepatic and splenic margins not palpable. MUSCULOSKELETAL: Extremities without clubbing, cyanosis, or edema. No obvious deformities. NEUROLOGICAL: Awake and alert. No obvious cranial nerve deficits. Motor grossly within normal limits. Five out of 5 muscle strength in the arms and legs. Normal speech. PSYCHIATRIC: Appropriate mood and affect; insight and judgment normal. Quite anxious Results - Labs CBC & Chem 7: 06/08/18 13:30 06/08/18 13:30 Labs: Short CBC 06/08/18 Range/Units 13:30 WBC 4.6 (4.0-11.0) th/mm3 Hgb 12.1 (11.6-15.3) gm/dL Hct 35.9 (35.0-46.0) % Plt Count 276 (150-450) th/mm3 BMP 06/08/18 13:30 Sodium 140 Potassium 4.2 Chloride 108 H Carbon Dioxide 25.7 BUN 19 H Creatinine 0.95 Calcium 9.2 Cardiac Enzymes 06/08/18 Range/Units 13:30 Troponin I 0.09 H (0.02-0.05) ng/mL Liver Function 06/08/18 Range/Units 13:30 Total Bilirubin 0.6 (0.2-1.0) mg/dL AST 24 (15-37) U/L ALT 22 (10-53) U/L Alkaline Phosphatase 73 (45-117) U/L Albumin 3.9 (3.4-5.0) g/dL Urine 06/08/18 Range/Units 15:00 Urine Color Yellow (Yellw/Straw) Urine Clarity Hazy H (Clear) Urine pH 6.0 (5.0-8.5) Ur Specific [place] 1.012 (1.002-1.035) Urine Protein Negative (Neg-Trace) mg/dL Urine Glucose (UA) Negative (Negative) mg/dL - Imaging Impressions Chest X-Ray 06/08/18 13:44 CONCLUSION: No acute findings. Tortuous aorta. Cardiomegaly. Pacer lead in right ventricle. Caprini VTE Risk Assessment Caprini VTE Risk Assessment: No/Low Risk (score <= 1) Caprini Risk Assessment Model: Point Value = 1 Point Value = 2 Point Value = 3 Point Value = 5 Age 41-60 Minor surgery BMI > 25 kg/m2 Swollen legs Varicose veins or History of unexplained or recurrent spontaneous Oral contraceptives or hormone replacement Sepsis (< 1 month) Serious lung disease, including pneumonia (< 1 month) Abnormal pulmonary function Acute myocardial infarction Congestive heart failure (< 1 month) History of inflammatory bowel disease Medical patient at bed rest Age 61-74 Arthroscopic surgery Major open surgery (> 45 min) Laparoscopic surgery (> 45 min) Malignancy Confined to bed (> 72 hours) Immobilizing plaster cast Central venous access Age >= 75 History of VTE Family history of VTE Factor V Leiden Prothrombin [id number] Lupus anticoagulant Anticardiolipin antibodies Elevated serum homocysteine Heparin-induced thrombocytopenia Other congenital or acquired thrombophilia Stroke (< 1 month) Elective arthroplasty Hip, pelvis, or leg fracture Acute spinal cord injury (< 1 month) Prophylaxis Regimen: Total Risk Factor Score Risk Level Prophylaxis Regimen 0-1 Low Early ambulation 2 Moderate Order ONE of the following: *Sequential Compression Device (SCD) *Heparin 5000 units SQ BID 3-4 Higher Order ONE of the following medications: *Heparin 5000 units SQ TID *Enoxaparin/Lovenox 40 mg SQ daily (WT < 150 kg, CrCl > 30 mL/min) *Enoxaparin/Lovenox 30 mg SQ daily (WT < 150 kg, CrCl > 10-29 mL/min) *Enoxaparin/Lovenox 30 mg SQ BID (WT < 150 kg, CrCl > 30 mL/min) AND/OR *Sequential Compression Device (SCD) 5 or more Highest Order ONE of the following medications: *Heparin 5000 units SQ TID (Preferred with Epidurals) *Enoxaparin/Lovenox 40 mg SQ daily (WT < 150 kg, CrCl > 30 mL/min) *Enoxaparin/Lovenox 30 mg SQ daily (WT < 150 kg, CrCl > 10-29 mL/min) *Enoxaparin/Lovenox 30 mg SQ BID (WT < 150 kg, CrCl > 30 mL/min) AND *Sequential Compression Device (SCD) Assessment and Plan - Plan Slightly positive troponin will consult cardiology will get an echo. Trend troponins and cardiac enzymes Anxiety will make some Ativan available GERD/hiatal hernia will make sure she has some Pepcid scheduled twice daily Hypertension we will try to obtain her home medications. -Was given fluids earlier due to mild hypotension Positive troponins Very slight dehydration with slightly elevated BUN of 19 and creatinine of 0.95 we will continue on fluids Slight renal insufficiency continue on fluids Continue GI prophylaxis with Pepcid DVT prophylaxis with heparin subcu 3 times daily We will ask for her pacemaker to be evaluated Code Status: Full code Discussed Condition With: RN and patient and daughter and emergency room physician Discharge Planning: Once cleared by cardiology
[2018-06-08] MEDS ORDERED: LORazepam 0.5 MG Tablet PO PRN (16:49)
[2018-06-08] MEDS: Sod Chloride 0.9% Inj 1,000 ML IV.CONT SCH (19:22)
[2018-06-08] MEDS: Heparin - SQ 10,000 UNITS/ML Vial SQ SCH (19:23)
[2018-06-08 20:24] LABS: Troponin I 0.1 ng/mL (0.02-0.05)
[2018-06-08] MEDS: Senna/Docusate Sodium 8.6/50 MG Tablet PO SCH (20:53)
[2018-06-08] MEDS: Famotidine 20 MG Tablet PO SCH (20:53)
[2018-06-08 23:34] LABS: Troponin I 0.11 ng/mL (0.02-0.05)
[2018-06-09] MEDS: Heparin - SQ 10,000 UNITS/ML Vial SQ SCH ×2 (02:44→12:06)
[2018-06-09] MEDS: Sod Chloride 0.9% Inj 1,000 ML IV.CONT SCH (06:10)
[2018-06-09 06:14] LABS: Baso % (Auto) 0.8 % (0.0-2.0); Eos % (Auto) 0.8 % (0.0-4.0); Hematocrit 29.4 % (35.0-46.0); Hemoglobin 10.6 gm/dL (11.6-15.3); Lymph # (Auto) 1.2 th/mm3 (1.0-4.8); Lymph % (Auto) 24.8 % (9.0-44.0); Mean Corpuscular Hemoglobin 32.9 pg (27.0-34.0); Mean Corpuscular Volume 91.3 fL (80.0-100.0); Mean Platelet Volume 7.2 fL (7.0-11.0); Mono # (Auto) 0.4 th/mm3 (0.0-0.9); Mono % (Auto) 8.9 % (0.0-8.0); Neut # (Auto) 3.2 th/mm3 (1.8-7.7); Neut % (Auto) 64.7 % (16.0-70.0); Platelet Count 241 th/mm3 (150-450); Red Blood Count 3.22 mil/mm3 (4.00-5.30); Red Cell Distribution Width 12.4 % (11.6-17.2)
[2018-06-09 06:16] LABS: INR 1.1 Ratio; Prothrombin Time 11.6 sec (9.8-11.6)
[2018-06-09 06:50] LABS: Alanine Aminotransferase 18 U/L (10-53); Albumin 3.1 g/dL (3.4-5.0); Alkaline Phosphatase 62 U/L (45-117); Anion Gap 9 meq/L (5-15); Aspartate Aminotransferase 18 U/L (15-37); Blood Urea Nitrogen 15 mg/dL (7-18); Calcium 8.5 mg/dL (8.5-10.1); Carbon Dioxide 23.3 meq/L (21.0-32.0); Chloride 110 meq/L (98-107); Chol/HDL Ratio 2.04 Ratio; Cholesterol 138 mg/dL (120-200); Free T4 (Free Thyroxine) 1.04 ng/dL (0.76-1.46); Glomerular Filtration Rate Greater Than 89 mL/min (>89); Glucose,Random 102 mg/dL (74-106); HDL Cholesterol 67.5 mg/dL (40.0-60.0); LDL Cholesterol,Calculated 58 mg/dL (0-99); Magnesium 2.1 mg/dL (1.5-2.5); Phosphorus 2.6 mg/dL (2.5-4.9); Potassium 3.9 meq/L (3.5-5.1); Sodium 142 meq/L (136-145); Total Protein 6.1 g/dL (6.4-8.2); Triglycerides 64 mg/dL (42-150)
[2018-06-09] MEDS ORDERED: Metoprolol Tartrate 50 MG Tablet PO SCH (09:00)
[2018-06-09] MEDS ORDERED: amLODIPine 5 MG Tablet PO SCH (09:00)
[2018-06-09] MEDS: Senna/Docusate Sodium 8.6/50 MG Tablet PO SCH (12:04)
[2018-06-09] MEDS: Famotidine 20 MG Tablet PO SCH (12:06)
--- NOTE | 2018-06-09 12:50 | P.PN ---
Subjective Interval history: Follow-up for flushing, lightheadedness, elevated troponins. The patient reports feeling better today. She denies any further episodes of flushing or lightheadedness overnight. She denies any chest pain, palpitations, shortness of breath. She believes she has had a cardiac catheterization in the past, states this was many years ago. She denies any recent cardiac stress testing or echocardiogram. She denies any other medical complaints at this time. Physical Exam Vital signs: Vital Signs 06/08/18 12:35 06/08/18 12:59 06/08/18 14:00 Temperature 98.9 F Pulse Rate 84 75 76 Respiratory Rate 16 18 Blood Pressure 80/57 L 144/88 H Pulse Oximetry 100 06/08/18 15:00 06/08/18 16:00 06/08/18 17:50 Temperature 97.4 F L Pulse Rate 78 75 71 Respiratory Rate 18 18 16 Blood Pressure 128/82 138/88 148/81 H Pulse Oximetry 99 99 99 06/08/18 20:00 06/08/18 22:56 06/09/18 04:00 Temperature 98.2 F 98.4 F Pulse Rate 75 81 77 Respiratory Rate 16 17 17 Blood Pressure 146/83 H 134/74 115/67 Pulse Oximetry 98 98 97 06/09/18 08:00 06/09/18 12:00 Temperature 98.5 F 98.2 F Pulse Rate 70 80 Respiratory Rate 16 18 Blood Pressure 106/61 112/64 Pulse Oximetry 97 97 Intake & Output 06/08/18 06/09/18 06/09/18 18:59 06:59 18:59 Intake Total 500 / 500 1120 / 1120 Balance 500 / 500 1120 / 1120 Weight 57.153 kg 60.4 kg Intake: IV 500 / 500 1000 / 1000 NS Inj 1,000 ML @ 100 mls/hr IV 1000 / 1000 .CONT .Q10H ADELE Rx#:[id number] NS Inj 500 ML @ Wide Open IV. 500 / 500 SIG BOLUS ONE Rx#:[id number] Oral 120 / 120 Other: # Voids 1 3 Date of Last Bowel Movement 06/09/18 # Bowel Movements 1 Weight On Admission 57.153 kg Narrative: GENERAL: Well-nourished, well-developed pleasant elderly female patient in [facility]. SKIN: Warm and dry. No rash. HEENT: Normocephalic. Atraumatic. Pupils equal and round. Mucous membranes pink and moist. NECK: Supple. Trachea midline. CARDIOVASCULAR: Regular rate and rhythm. No murmur appreciated. RESPIRATORY: No accessory muscle use. Clear to auscultation. Breath sounds equal bilaterally. GASTROINTESTINAL: Abdomen soft, non-tender, nondistended. Normoactive bowel sounds x4. MUSCULOSKELETAL: No obvious deformities. Extremities without clubbing, cyanosis , or edema. NEUROLOGICAL: Awake and alert. No obvious cranial nerve deficits. Motor grossly within normal limits. Moving all extremities spontaneously. Normal speech. Results - Labs CBC & Chem 7: 06/09/18 05:29 06/09/18 05:29 Laboratory Results - last 24 hr 06/08/18 06/08/18 06/08/18 13:30 13:30 15:00 WBC 4.6 RBC 3.83 L Hgb 12.1 Hct 35.9 MCV 93.7 MCH 31.6 MCHC 33.7 RDW 12.6 Plt Count 276 MPV 7.4 Prelim Diff (Auto) Neut % (Auto) 60.7 Lymph % (Auto) 29.7 Gulf % (Auto) 8.1 H Eos % (Auto) 0.6 Baso % (Auto) 0.9 Neut # (Auto) 2.8 Lymph # (Auto) 1.4 [place] # (Auto) 0.4 Eos # (Auto) 0.0 Baso # (Auto) 0.0 WBC Differential . Diff Scan Differential Comment Auto diff final PT INR Sodium 140 Potassium 4.2 Chloride 108 H Carbon Dioxide 25.7 Anion Gap 6 BUN 19 H Creatinine 0.95 Estimated GFR 58 L POC Glucose Random Glucose 100 Calcium 9.2 Phosphorus Magnesium Total Bilirubin 0.6 AST 24 ALT 22 Alkaline Phosphatase 73 Total Creatine Kinase Troponin I 0.09 H Total Protein 7.5 Albumin 3.9 Triglycerides Cholesterol LDL Cholesterol, Calc HDL Cholesterol Cholesterol/HDL Ratio TSH Free T4 Urine Color Yellow Urine Clarity Hazy H Urine pH 6.0 Ur Specific [place] 1.012 Urine Protein Negative Urine Glucose (UA) Negative Urine Ketones Trace H Urine Occult Blood Small H Urine Nitrate Negative Urine Bilirubin Negative Urine Urobilinogen Less than 2 Ur Leukocyte Esterase Trace H Urine RBC 1 Urine WBC 2 Ur Squamous Epith Cells 3 Hyaline Casts 4 Urine Mucus Few H Micro UA Comment Culture not ind Urine Culture Comments Culture not ind [id number] 06/08/18 17:57 19:47 20:43 WBC RBC Hgb Hct MCV MCH MCHC RDW Plt Count MPV Prelim Diff (Auto) Neut % (Auto) Lymph % (Auto) [place] % (Auto) Eos % (Auto) Baso % (Auto) Neut # (Auto) Lymph # (Auto) [place] # (Auto) Eos # (Auto) Baso # (Auto) WBC Differential Diff Scan Differential Comment PT INR Sodium Potassium Chloride Carbon Dioxide Anion Gap BUN Creatinine Estimated GFR POC Glucose 106 126 H Random Glucose Calcium Phosphorus Magnesium Total Bilirubin AST ALT Alkaline Phosphatase Total Creatine Kinase 38 Troponin I 0.10 H Total Protein Albumin Triglycerides Cholesterol LDL Cholesterol, Calc HDL Cholesterol Cholesterol/HDL Ratio TSH Free T4 Urine Color Urine Clarity Urine pH Ur Specific [place] Urine Protein Urine Glucose (UA) Urine Ketones Urine Occult Blood Urine Nitrate Urine Bilirubin Urine Urobilinogen Ur Leukocyte Esterase Urine RBC Urine WBC Ur Squamous Epith Cells Hyaline Casts Urine Mucus Micro UA Comment Urine Culture Comments 06/08/18 06/09/18 06/09/18 22:50 05:29 05:29 WBC 5.0 RBC 3.22 L Hgb 10.6 L Hct 29.4 L MCV 91.3 MCH 32.9 MCHC 36.0 RDW 12.4 Plt Count 241 MPV 7.2 Prelim Diff (Auto) Slide review pending Neut % (Auto) 64.7 Lymph % (Auto) 24.8 [place] % (Auto) 8.9 H Eos % (Auto) 0.8 Baso % (Auto) 0.8 Neut # (Auto) 3.2 Lymph # (Auto) 1.2 [place] # (Auto) 0.4 Eos # (Auto) 0.0 Baso # (Auto) 0.0 WBC Differential . Diff Scan Auto diff confirmed Differential Comment . PT 11.6 INR 1.1 Sodium Potassium Chloride Carbon Dioxide Anion Gap BUN Creatinine Estimated GFR POC Glucose Random Glucose Calcium Phosphorus Magnesium Total Bilirubin AST ALT Alkaline Phosphatase Total Creatine Kinase 41 Troponin I 0.11 H Total Protein Albumin Triglycerides Cholesterol LDL Cholesterol, Calc HDL Cholesterol Cholesterol/HDL Ratio TSH Free T4 Urine Color Urine Clarity Urine pH Ur Specific [place] Urine Protein Urine Glucose (UA) Urine Ketones Urine Occult Blood Urine Nitrate Urine Bilirubin Urine Urobilinogen Ur Leukocyte Esterase Urine RBC Urine WBC Ur Squamous Epith Cells Hyaline Casts Urine Mucus Micro UA Comment Urine Culture Comments 06/09/18 05:29 WBC RBC Hgb Hct MCV MCH MCHC RDW Plt Count MPV Prelim Diff (Auto) Neut % (Auto) Lymph % (Auto) [place] % (Auto) Eos % (Auto) Baso % (Auto) Neut # (Auto) Lymph # (Auto) [place] # (Auto) Eos # (Auto) Baso # (Auto) WBC Differential Diff Scan Differential Comment PT INR Sodium 142 Potassium 3.9 Chloride 110 H Carbon Dioxide 23.3 Anion Gap 9 BUN 15 Creatinine 0.62 Estimated GFR Greater than 89 POC Glucose Random Glucose 102 Calcium 8.5 Phosphorus 2.6 Magnesium 2.1 Total Bilirubin 0.5 AST 18 ALT 18 Alkaline Phosphatase 62 Total Creatine Kinase Troponin I Total Protein 6.1 L D Albumin 3.1 L D Triglycerides 64 Cholesterol 138 LDL Cholesterol, Calc 58 HDL Cholesterol 67.5 H Cholesterol/HDL Ratio 2.04 TSH 2.040 Free T4 1.04 Urine Color Urine Clarity Urine pH Ur Specific [place] Urine Protein Urine Glucose (UA) Urine Ketones Urine Occult Blood Urine Nitrate Urine Bilirubin Urine Urobilinogen Ur Leukocyte Esterase Urine RBC Urine WBC Ur Squamous Epith Cells Hyaline Casts Urine Mucus Micro UA Comment Urine Culture Comments - Imaging Impressions Chest X-Ray 06/08/18 13:44 CONCLUSION: No acute findings. Tortuous aorta. Cardiomegaly. Pacer lead in right ventricle. Assessment and Plan - Plan 72-year-old female with history of pacemaker, hypertension, anxiety, presents with acute onset of feeling flushed and lightheaded. She was found to have elevated troponins in the ER. Flushing/lightheadedness: Acute, unclear etiology, possibly anxiety vs dehydration vs arrhythmia, found to have elevated troponins -Give supportive treatment with IVF hydration -Monitor on telemetry -Echocardiogram ordered -Interrogate patient's Biotronik pacemaker -No further symptoms since arrival Elevated troponins: Acute, no history of CAD. No complaints of chest pain, however with atypical symptoms of flushing and lightheadedness. -Troponins trended, 0.09, 0.10, 0.11 -EKG without acute ischemic changes -Give aspirin -Continue patient's BB, satin -Check echocardiogram -Consult cardiology, patient known to Dr. Toledo Hypertension/Hyperlipidemia: BP well controlled -continue patient's home medications including norvasc, metoprolol, statin -Monitor BP, adjust antihypertensives as needed Anxiety: acute on chronic, possibly contributing to above symptoms -continue patient's ativan prn DVT Prophylaxis: Heparin sq Discharge Planning: Discharge pending echocardiogram and cardiology evaluation. 1530hrs: Echocardiogram unremarkable with EF 50%, trace AR, trace TR. Biotronik pacer interrogation unremarkable. Discussed with cardiology Dr. Mcknight who has evaluated the patient, ok to discharge home. 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 Toledo within 1 week
--- NOTE | 2018-06-09 14:35 | ECHRPT ---
Indication: HYPERTENSIVE HD CONCLUSIONS Mildly dilated left ventricle. Wall thickness is normal. The left ventricular systolic function is low normal with an estimated ejection fraction in the rang e of 50%. A pacemaker wire is noted. The left atrial size is mildly dilated. Mitral annular calcification is present. Trace aortic valve regurgitation. There is trace tricuspid valve regurgitation. The estimated pulmonary arterial pressure is 33 mmHg. BP: / HR: Rhythm: MEASUREMENTS (Male / Female) Normal Values Technical Quality: 2D ECHO LV Diastolic Diameter PLAX 5.5 cm 4.2 - 5.9 / 3.9 - 5.3 cm LV Systolic Diameter PLAX 4.4 cm IVS Diastolic Thickness 1.1 cm 0.6 - 1.0 / 0.6 - 0.9 cm LVPW Diastolic Thickness 0.7 cm 0.6 - 1.0 / 0.6 - 0.9 cm LV Relative Wall Thickness 0.3 RV Internal Dim ED PLAX 1.9 cm LA Systolic Diameter LX 3.7 cm 3.0 - 4.0 / 2.7 - 3.8 cm DOPPLER Mitral E Point Velocity 46.9 cm/s Mitral A Point Velocity 44.4 cm/s Mitral E to A Ratio 1.1 TR Peak Velocity 237.0 cm/s TR Peak Gradient 22.5 mmHg Right Atrial Pressure 10.0 mmHg Pulmonary Artery Systolic Pressu 32.5 mmHg Right Ventricular Systolic Press 32.5 mmHg FINDINGS LEFT VENTRICLE Mildly dilated left ventricle. Wall thickness is normal. The left ventricular systolic function is low normal with an estimated ejection fraction in the rang e of 50%. RIGHT VENTRICLE A pacemaker wire is noted. LEFT ATRIUM The left atrial size is mildly dilated. RIGHT ATRIUM The right atrial size is normal. ATRIAL SEPTUM Normal atrial septal thickness without atrial level shunting by limited color doppler interrogation. AORTA The aortic root and proximal ascending aorta are normal in size on limited imaging. MITRAL VALVE Mitral annular calcification is present. AORTIC VALVE Trace aortic valve regurgitation. TRICUSPID VALVE There is trace tricuspid valve regurgitation. The estimated pulmonary arterial pressure is 33 mmHg. PULMONARY VALVE No pulmonary valve regurgitation or stenosis. VESSELS The inferior vena cava is normal in size. PERICARDIUM No pericardial effusion. Crescencio Cheung MD, FACC, FSCAI (Electronically Signed) Final Date:09 June 2018 14:34
[2018-06-09 16:41] LABS: Hemoglobin A1c 5.2 % (4.3-6.0)
[2018-06-09 17:17] VITALS: BP 124/76; PULSE 76; RESP 16; TEMP 97.9; O2SAT 99
--- NOTE | 2018-06-09 22:19 | ECG ---
Date Performed: 06/08/2018 Time Performed: 22:59:28 PTAGE: 72 years EKG: Sinus rhythm MARKED LEFT AXIS DEVIATION MODERATE INTRAVENTRICULAR CONDUCTION DELAY NONSPECIFIC ST & T-WAVE ABNORM ALITY ABNORMAL ECG PREVIOUS TRACING : 06/08/2018 13.48 Since the previous tracing, no significant change noted DOCTOR: Dereck Bird Interpretating Date/Time 06/09/2018 22:18:05
--- NOTE | 2018-06-09 22:41 | ECG ---
Date Performed: 06/08/2018 Time Performed: 13:48:01 PTAGE: 72 years EKG: Sinus rhythm MARKED LEFT AXIS DEVIATION MODERATE INTRAVENTRICULAR CONDUCTION DELAY NONSPECIFIC ST & T-WAVE ABNORM ALITY ABNORMAL ECG INTERPRETATION BASED ON A DEFAULT AGE OF 40 YEARS PREVIOUS TRACING : 05/08/2016 18.33 Since the previous tracing, no significant change not ed DOCTOR: Dereck Bird Interpretating Date/Time 06/09/2018 22:39:53
--- NOTE | 2018-06-10 02:57 | P.HPCA ---
History of Present Illness Primary Care Physician: No Primary Care Physician Chief Complaint: WEAKNESS AND DIZZINESS History of Present Illness: Patient is a 72-year-old female she has a PMH of [facility] recent EF of 50% s/p AICD for reduced EF in the past, Hx of [place], vertigo who presents to the ER with complaints of dizziness and whole body tingling originating from her epigastric region. She denies CP/PND/orthopnea or syncope. The patient attributes her symptoms to a possible UTI or hiatal hernia. Upon arrival her UA did not show a UTI. She did however had a mildly elevated troponin and evidence of dehydration with a reduced GFR. Currently she is chest pain free. Echo reveals no significant RWMA. Interrogation of her device does not reveal any arrhythmias.She has had a prior normal angiogram in 2003. Review of Systems Negative unless mentioned in HPI. [facility] - History History Provided By: Patient - Medical History Medical History: Medical History (Last Reviewed 06/09/18 @ 09:39 by Declan Burgos) Anxiety Artificial cardiac pacemaker H/O: hysterectomy HTN (hypertension) Varicose vein of leg - Surgical History Surgical History: Surgical History (Last Reviewed 06/09/18 @ 09:39 by Declan Burgos) H/O varicose vein stripping History of permanent cardiac pacemaker placement - Family History Family History: Family History (Last Reviewed 06/09/18 @ 07:30 by Betzy Tian) Other Family history of hypertension - Tobacco History Second Hand Smoke Exposure: No Tobacco Use In Past 30 Days: No Smoking Status: Never smoker Tobacco Type: Cigarettes - Alcohol History How Often Do You Have a Drink Containing Alcohol: 2 to 4 times a month - Substance Use History Substance History: No History of Abuse - Travel History History of Recent Travel: No Recent Travel in the [place] Within the Last 8 Weeks: No Recent Travel Out of the Country Within the Last 8 Weeks: No - Immunization History Tetanus Immunization: >5 Years Hx Influenza Vaccine This Season: No Medications and Allergies Allergies Allergy/AdvReac Type Severity Reaction Status Date / Time No Known Allergies Allergy Unverified 04/20/18 14:50 Home Medications Medication Instructions Recorded Confirmed Type amlodipine 2.5 mg PO DAILY 06/08/18 06/08/18 History atorvastatin 20 mg PO DAILY 06/08/18 06/08/18 History famotidine 20 mg PO DAILY 06/08/18 06/08/18 History metoprolol tartrate 50 mg PO BID 06/08/18 06/08/18 History ondansetron [Zofran ODT] 4 mg PO QID PRN 06/08/18 06/08/18 History Exam Vital signs: Vital Signs 06/09/18 04:00 06/09/18 08:00 06/09/18 12:00 Temperature 98.4 F 98.5 F 98.2 F Pulse Rate 77 70 80 Respiratory Rate 17 16 18 Blood Pressure 115/67 106/61 112/64 Pulse Oximetry 97 97 97 06/09/18 16:00 Temperature 97.9 F Pulse Rate 76 Respiratory Rate 16 Blood Pressure 124/76 Pulse Oximetry 99 Intake & Output 06/09/18 06/09/18 06/10/18 06:59 18:59 06:59 Intake Total 1120 / 1120 Balance 1120 / 1120 Weight 60.4 kg Intake: IV 1000 / 1000 NS Inj 1,000 ML @ 100 mls/hr IV 1000 / 1000 .CONT .Q10H ADELE Rx#:[id number] Oral 120 / 120 Other: # Voids 3 Date of Last Bowel Movement 06/09/18 # Bowel Movements 1 - Constitutional no acute distress - Routine HEENT Exam Head: Present: normocephalic Eye: Present: EOMI - Routine Neck Exam Present: supple - Routine Chest/Breast/Axilla Exam Chest wall: Present: pacemaker - Routine Respiratory Exam Present: CTA bilaterally - Routine Cardiovascular Exam Present: RRR, S1, S2 - Routine Abdominal Exam Present: soft, normoactive bowel sounds - Routine Extremities Exam Absent: edema - Routine Skin Exam Absent: rash - Routine Neurological Exam Present: alert, oriented X3 - Routine Psychiatric Exam Present: normal affect Results 06/09/18 05:29 06/09/18 05:29 Cardiac Enzymes 06/09/18 Range/Units 05:29 AST 18 (15-37) U/L Coagulation 06/09/18 Range/Units 05:29 PT 11.6 (9.8-11.6) sec Lipids 06/09/18 Range/Units 05:29 Triglycerides 64 (42-150) mg/dL Cholesterol 138 (120-200) mg/dL HDL Cholesterol 67.5 H (40.0-60.0) mg/dL Cholesterol/HDL Ratio 2.04 Ratio CBC 08/08/18 Range/Units 05:29 WBC 5.0 (4.0-11.0) th/mm3 RBC 3.22 L (4.00-5.30) mil/mm3 Hgb 10.6 L (11.6-15.3) gm/dL Hct 29.4 L (35.0-46.0) % Plt Count 241 (150-450) th/mm3 Neut # (Auto) 3.2 (1.8-7.7) th/mm3 Lymph # (Auto) 1.2 (1.0-4.8) th/mm3 [place] # (Auto) 0.4 (0.0-0.9) th/mm3 Eos # (Auto) 0.0 (0.0-0.4) th/mm3 Baso # (Auto) 0.0 (0.0-0.2) th/mm3 Comprehensive Metabolic Panel 06/09/18 Range/Units 05:29 Sodium 142 (136-145) meq/L Potassium 3.9 (3.5-5.1) meq/L Chloride 110 H (98-107) meq/L Carbon Dioxide 23.3 (21.0-32.0) meq/L BUN 15 (7-18) mg/dL Creatinine 0.62 (0.50-1.00) mg/dL Calcium 8.5 (8.5-10.1) mg/dL AST 18 (15-37) U/L ALT 18 (10-53) U/L Alkaline Phosphatase 62 (45-117) U/L Total Protein 6.1 L D (6.4-8.2) g/dL Albumin 3.1 L D (3.4-5.0) g/dL - Imaging and Cardiology Echo: pending (No RWMA or acute vavlular disease. IVC normal size.) EKG interpretations - EKG EKG results cardiology: interpreted by ERMD (no acute ST-T changes.) Caprini VTE Risk Assessment Caprini VTE Risk Assessment: No/Low Risk (score <= 1) Caprini Risk Assessment Model: Point Value = 1 Point Value = 2 Point Value = 3 Point Value = 5 Age 41-60 Minor surgery BMI > 25 kg/m2 Swollen legs Varicose veins or History of unexplained or recurrent spontaneous Oral contraceptives or hormone replacement Sepsis (< 1 month) Serious lung disease, including pneumonia (< 1 month) Abnormal pulmonary function Acute myocardial infarction Congestive heart failure (< 1 month) History of inflammatory bowel disease Medical patient at bed rest Age 61-74 Arthroscopic surgery Major open surgery (> 45 min) Laparoscopic surgery (> 45 min) Malignancy Confined to bed (> 72 hours) Immobilizing plaster cast Central venous access Age >= 75 History of VTE Family history of VTE Factor V Leiden Prothrombin [id number] Lupus anticoagulant Anticardiolipin antibodies Elevated serum homocysteine Heparin-induced thrombocytopenia Other congenital or acquired thrombophilia Stroke (< 1 month) Elective arthroplasty Hip, pelvis, or leg fracture Acute spinal cord injury (< 1 month) Prophylaxis Regimen: Total Risk Factor Score Risk Level Prophylaxis Regimen 0-1 Low Early ambulation 2 Moderate Order ONE of the following: *Sequential Compression Device (SCD) *Heparin 5000 units SQ BID 3-4 Higher Order ONE of the following medications: *Heparin 5000 units SQ TID *Enoxaparin/Lovenox 40 mg SQ daily (WT < 150 kg, CrCl > 30 mL/min) *Enoxaparin/Lovenox 30 mg SQ daily (WT < 150 kg, CrCl > 10-29 mL/min) *Enoxaparin/Lovenox 30 mg SQ BID (WT < 150 kg, CrCl > 30 mL/min) AND/OR *Sequential Compression Device (SCD) 5 or more Highest Order ONE of the following medications: *Heparin 5000 units SQ TID (Preferred with Epidurals) *Enoxaparin/Lovenox 40 mg SQ daily (WT < 150 kg, CrCl > 30 mL/min) *Enoxaparin/Lovenox 30 mg SQ daily (WT < 150 kg, CrCl > 10-29 mL/min) *Enoxaparin/Lovenox 30 mg SQ BID (WT < 150 kg, CrCl > 30 mL/min) AND *Sequential Compression Device (SCD) Assessment and Plan - Plan 72 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 Her Echo remains unchanged from March 2018. Her device doesn't show any arrythmias. Dizziness- I believed this is likely multifactorial. Her troponin is mildly elevated and has been stable in the context of mild TIFF likely from dehydration. The patient is currently asymptomatic. There does not appear to be a clear cardiac cause of her symptoms currently and her results of cardiac testing are wnl. As such, the patient will continue to follow up as an outpatient with Dr. Toledo. No further w/up at this time. The case was discussed with the Hospitalist team who are in agreement. H&P: Quality - VTE Deep Vein Thrombosis/Pulmonary Embolism Present on Admission: No
== END 2018-06-09 17:50 | disposition home or self-care (01) ==
LOC: NEPGCP 12:33 → NEDA 12:33 → NEPC 12:33 → NEPGCP 17:21
PROVIDERS: ADMIT Hospitalist; ATTEND Hospitalist